=== PATIENT | male | born 1950 | race Caucasian/White ===

== ENCOUNTER → 2017-08-13 | Outpatient (CLI) | payer MEDICARE ==
[~2017-08-13] MED LIST: ASCO10004 PO; ASPI-496 PO; LOSA100T6 PO; MULT-658 PO; NIFE90TA8 PO; POTA2TAB8 PO; VITA400C43 PO
[2017-08-13 09:12] LABS: ASPARTATE AMINO TRANSFERASE 17 U/L (15-37); BLOOD UREA NITROGEN 17 mg/dL (7-18)
== END | disposition home or self-care (01) ==
LOC: STAR 08:03
PROVIDERS: ATTEND Thoracic Surgery (Cardiothoracic Vascular Surgery)
DX: Z01.818 Encounter for other preprocedural examination (principal); K43.9 Ventral hernia without obstruction or gangrene; R94.31 Abnormal electrocardiogram [ECG] [EKG]
CPT/HCPCS: 36415; 80053; 93005

== ENCOUNTER 2017-08-20 06:22 | Day surgery (SDC) | payer MEDICARE ==
[~2017-08-20] VITALS: Ht 177.8 cm; Wt 97.5 kg
[~2017-08-20 06:22] MED LIST changes: +BUPIVACAINE/PF 0.5% ONE
[2017-08-20 07:25] VITALS: BP 120/87
[2017-08-20] MEDS ORDERED: LACTATED RINGERS 1,000 ML IV SCH ×2 (07:41→10:10)
[2017-08-20] MEDS ORDERED: MIDAZOLAM 1 MG/ML, 2ML ONE (08:40)
[2017-08-20] MEDS ORDERED: FENTANYL PF 250 MCG/5ML ONE (08:41)
[2017-08-20] MEDS ORDERED: PROPOFOL 10 MG/ML, 20ML ONE (08:44)
[2017-08-20] MEDS ORDERED: ROCURONIUM 10 MG/ML,10ML ONE (08:44)
[2017-08-20] MEDS ORDERED: LABETALOL 5MG/ML, 20ML IV PRN (09:00)
[2017-08-20] MEDS ORDERED: FENTANYL PF 100 MCG/2ML IV PRN (09:00)
[2017-08-20] MEDS ORDERED: ACETAMINOPHEN 325 MG TABLET PO PRN (09:00)
[2017-08-20] MEDS ORDERED: OXYcodone 5 MG/5 ML ORAL.SOL UDC PO PRN (09:00)
[2017-08-20] MEDS ORDERED: ONDANSETRON 2MG/ML, 2ML IVPush PRN ×2 (09:00→10:30)
[2017-08-20] MEDS ORDERED: PROMETHAZINE 25 MG/ML, 1ML IV PRN (09:00)
[2017-08-20] MEDS ORDERED: MEPERIDINE/PF 25MG/0.5ML IVPush PRN (09:00)
[2017-08-20] MEDS ORDERED: HYDROmorphone 1 MG/ML, 1ML IV PRN (09:00)
[2017-08-20] MEDS ORDERED: hydrALAzine 20 MG/ML, 1ML IV PRN (09:00)
[2017-08-20] MEDS ORDERED: DEXAMETHASONE 4 MG/ML, 1ML ONE ×2 (09:27→10:52)
[2017-08-20] MEDS ORDERED: SUCCINYLCHOLINE 20 MG/ML, 10ML ONE (09:52)
[2017-08-20] MEDS ORDERED: BUPIVACAINE/PF-EPI 0.5% 1:200K IM ONE (09:58)
[2017-08-20] MEDS ORDERED: KETOROLAC 30 MG/1 ML ONE (09:59)
[2017-08-20] MEDS ORDERED: KETOROLAC 30 MG/1 ML IVPush PRN (10:30)
[2017-08-20] MEDS ORDERED: HYDROcodone/APAP 5/325 TABLET PO PRN (10:30)
[2017-08-20] MEDS ORDERED: morphine SULFATE 10 MG/ML, 1ML IVPush PRN (10:30)
[2017-08-20] MEDS ORDERED: OXYcodone 5 MG/5 ML ORAL.SOL UDC ONE (10:50)
[2017-08-20] MEDS ORDERED: ACETAMINOPHEN 325 MG TABLET ONE (10:50)
[2017-08-20] MEDS ORDERED: ACETAMINOPHEN 650 MG/20.3 ML UDC ONE (10:50)
[2017-08-20] MEDS ORDERED: ONDANSETRON 2MG/ML, 2ML ONE (16:09)
[2017-08-20] MEDS ORDERED: CEFAZOLIN 1,000 MG ONE (16:10)
== END 2017-08-20 12:10 ==
LOC: OUT 06:22
PROVIDERS: ATTEND Thoracic Surgery (Cardiothoracic Vascular Surgery)
DX: K43.9 Ventral hernia without obstruction or gangrene (principal); I10 Essential (primary) hypertension; I25.2 Old myocardial infarction; Z72.0 Tobacco use; Z72.89 Other problems related to lifestyle
CPT/HCPCS: 49570; C1781; J0330; J0690; J1100; J1885; J2250; J2405; J2704; J3010; J3490; J7120

== ENCOUNTER 2018-10-21 10:06 | Inpatient (IN) | payer MEDICARE ==
[~2018-10-21] VITALS: Ht 177.8 cm; Wt 100.3 kg
[~2018-10-21 10:06] MED LIST changes: -BUPIVACAINE/PF 0.5% ONE; +BUPIVACAINE/PF-EPI 0.5% 1:200K ONE; +HEPARIN 5,000 UNITS/ML, 1ML ONE; +LOSA100T14 PO; -LOSA100T6 PO
[2018-10-21] MEDS ORDERED: LACTATED RINGERS 1,000 ML IV SCH ×3 (10:46→12:38)
[2018-10-21 10:49] VITALS: BP 134/87
[2018-10-21] MEDS ORDERED: MIDAZOLAM 1 MG/ML, 2ML ONE (11:19)
[2018-10-21] MEDS ORDERED: FENTANYL PF 100 MCG/2ML ONE ×2 (11:19→12:17)
[2018-10-21] MEDS ORDERED: PROPOFOL 10 MG/ML, 20ML ONE (12:27)
[2018-10-21] MEDS ORDERED: CEFAZOLIN 1,000 MG ONE (12:27)
[2018-10-21] MEDS ORDERED: HYDROcodone/APAP 5/325 TABLET PO PRN (13:00)
[2018-10-21] MEDS ORDERED: ONDANSETRON 2MG/ML, 2ML IVPush PRN ×2 (13:00)
[2018-10-21] MEDS ORDERED: hydrALAzine 20 MG/ML, 1ML IV PRN ×2 (13:00)
[2018-10-21] MEDS ORDERED: LORazepam 2 MG/ML, 1ML IVPush PRN (13:00)
[2018-10-21] MEDS ORDERED: morphine SULFATE 10 MG/ML, 1ML IVPush PRN (13:00)
[2018-10-21] MEDS ORDERED: METOPROLOL 1 MG/ML, 5ML IV PRN (13:00)
[2018-10-21] MEDS ORDERED: LORazepam 2 MG/ML, 1ML IV PRN (13:00)
[2018-10-21] MEDS ORDERED: ACETAMINOPHEN 325 MG TABLET PO PRN (13:00)
[2018-10-21] MEDS: FAMOTIDINE 20 MG/2 ML IV SCH (13:00)
[2018-10-21] MEDS ORDERED: FENTANYL PF 100 MCG/2ML IV PRN (13:00)
[2018-10-21] MEDS ORDERED: ALBUTEROL/IPRATROPIUM 2.5MG/0.5MG, 3 ML NPPB PRN (13:00)
[2018-10-21] MEDS ORDERED: ACETAMINOPHEN 650 MG/20.3 ML UDC PO PRN (13:00)
[2018-10-21] MEDS ORDERED: ENALAPRILAT 1.25 MG/ML, 2ML IV PRN (13:00)
[2018-10-21] MEDS ORDERED: LORazepam 1MG TABLET PO PRN (13:00)
[2018-10-21] MEDS ORDERED: ONDANSETRON 2MG/ML, 2ML IV PRN (13:00)
[2018-10-21] MEDS ORDERED: MIDAZOLAM 1 MG/ML, 2ML IV PRN (13:00)
[2018-10-21] MEDS ORDERED: OXYcodone 5 MG/5 ML ORAL.SOL UDC PO PRN (13:00)
[2018-10-21] MEDS ORDERED: ACETAMINOPHEN 650 MG/20.3 ML UDC ONE (13:03)
[2018-10-21 14:00] VITALS: BP 117/76
[2018-10-21] MEDS ORDERED: AMLO10TA8 PO (14:19)
[2018-10-21] MEDS: FAMOTIDINE 20 MG TABLET PO SCH (14:32)
[2018-10-21 17:49] VITALS: BP 122/86
[2018-10-21] MEDS: METOPROLOL TARTRATE 25 MG TABLET PO SCH (17:54)
[2018-10-21 19:54] VITALS: BP 125/91
[2018-10-21] MEDS: APIXABAN 5 MG TABLET PO SCH (20:11)
[2018-10-22] MEDS: FAMOTIDINE 20 MG/2 ML IV SCH (00:01)
[2018-10-22 01:16] VITALS: BP_SYST 125
[2018-10-22] MEDS: FAMOTIDINE 20 MG TABLET PO SCH (02:09)
[2018-10-22 05:04] VITALS: BP 132/89
[2018-10-22] MEDS: METOPROLOL TARTRATE 25 MG TABLET PO SCH (05:06)
[2018-10-22 08:44] VITALS: BP 129/94
[2018-10-22] MEDS: APIXABAN 5 MG TABLET PO SCH (09:58)
[2018-10-22] MEDS ORDERED: METOPROLOL TARTRATE 25 MG TABLET PO ONE (10:00)
[2018-10-22] MEDS ORDERED: APIX5TAB PO (14:31)
[2018-10-22] MEDS ORDERED: METO50TA82 PO ×2 (14:31)
[2018-10-22] MEDS ORDERED: METOPROLOL TARTRATE 50 MG TABLET PO SCH (18:00)
== END 2018-10-22 15:10 | disposition home or self-care (01) | DRG 982 ==
LOC: OUT 10:06 → INTOOBSV 12:38 → ORIP 12:38 → OBSVTOIN 12:38 → 5SO 13:55 → DCLOUNGE 10-22 14:44
PROVIDERS: ADMIT Thoracic Surgery (Cardiothoracic Vascular Surgery); ATTEND Thoracic Surgery (Cardiothoracic Vascular Surgery)
PROC: B5181ZA Fluoroscopy of Superior Vena Cava using Low Osmolar Contrast, Guidance (ICD-10-PCS; 2018-10-21)
PROC: 0JH60WZ Insertion of Totally Implantable Vascular Access Device into Chest Subcutaneous Tissue and Fascia, Open Approach (ICD-10-PCS; 2018-10-21)
PROC: 02HV33Z Insertion of Infusion Device into Superior Vena Cava, Percutaneous Approach (ICD-10-PCS; principal; 2018-10-21 12:30)
DX: C34.90 Malignant neoplasm of unspecified part of unspecified bronchus or lung (principal); D68.69 Other thrombophilia; I48.91 Unspecified atrial fibrillation; F17.200 Nicotine dependence, unspecified, uncomplicated; I10 Essential (primary) hypertension; I25.2 Old myocardial infarction
CPT/HCPCS: 71045; 76000; 93005; 93306; G0378; J0690; J1644; J2250; J2704; J3010; C1788; J7120

== ENCOUNTER 2018-10-26 10:28 | Inpatient (IN) | payer MEDICARE ==
[~2018-10-26] VITALS: Ht 177.8 cm; Wt 96.3 kg
[~2018-10-26 10:28] MED LIST changes: +AMLO10TA8 PO; +APIX5TAB PO; -BUPIVACAINE/PF-EPI 0.5% 1:200K ONE; -HEPARIN 5,000 UNITS/ML, 1ML ONE; +METO50TA82 PO
--- NOTE | 2018-10-26 11:09 | NUR ---
Assumed care of patient. Admitted last Friday for left upper chest port placement for lung cancer. Pre-op EKG showed afib and patient was started on metoprolol and eliquis. Since starting new meds, patient reports bilat upper chest pressure and bilat shoulder pressure. Patient did not take meds this AM. C/O SOB and lightheadedness. Lungs coarse throughout. In afib. Patient states his HR was 37 at oncologist today, but HR = 120s in ED. 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 at bedside. Will continue to monitor.
[2018-10-26] MEDS ORDERED: DILTIAZEM 125 MG in DEXTROSE 5% 100 ML IV SCH (11:19)
[2018-10-26 11:21] LABS: BASOPHILS # (AUTO) 0.04 x10^3/uL (0-0.1); BASOPHILS % (AUTO) 1 % (0-1); EOSINOPHILS # (AUTO) 0.09 x10^3/uL (0-0.4); EOSINOPHILS % (AUTO) 1 % (1-7); LYMPHOCYTES # (AUTO) 1.72 x10^3/uL (1-3.4); LYMPHOCYTES % (AUTO) 21 % (22-44); MD NO; MEAN CORPUSCULAR HEMOGLOBIN 33.4 pg (27.5-34.5); MEAN CORPUSCULAR HGB CONC 33.3 g/dL (33.2-36.2); MEAN CORPUSCULAR VOLUME 100.2 fL (81-97); MEAN PLATELET VOLUME 9.9 fL (7.4-10.4); MONOCYTES # (AUTO) 0.84 x10^3/uL (0.2-0.8); MONOCYTES % (AUTO) 10 % (2-9); NEUTROPHILS # (AUTO) 5.38 x10^3/uL (1.8-6.8); NEUTROPHILS % (AUTO) 67 % (42-75); PLATELET COUNT 147 x10^3/uL (130-400); RED BLOOD COUNT 5.28 x10^6/uL (4.38-5.82); RED CELL DISTRIBUTION WIDTH 13.5 % (9.4-14.8)
[2018-10-26 11:30] LABS: INTERNATIONAL NORMALIZED RATIO 0.95 (0.93-1.1)
[2018-10-26 11:32] LABS: ALBUMIN 3.7 g/dL (3.4-5.0); ANION GAP 4 mmol/L (5-15); CALCIUM 9.1 mg/dL (8.5-10.1); CHLORIDE 110 mmol/L (98-107); CREATININE 1.05 mg/dL (0.7-1.3)
[2018-10-26 11:36] LABS: TROPONIN I < 0.015 ng/mL (0.000-0.045)
--- NOTE | 2018-10-26 11:46 | NUR ---
Remains in afib. Michelle fu.
--- NOTE | 2018-10-26 12:53 | NUR ---
Report to YAMILET John.
[2018-10-26] MEDS ORDERED: HYDROcodone/APAP 5/325 TABLET PO PRN (13:00)
[2018-10-26] MEDS ORDERED: morphine SULFATE 10 MG/ML, 1ML IVPush PRN (13:00)
--- NOTE | 2018-10-26 13:00 | NUR ---
Patient to CT.
[2018-10-26] MEDS ORDERED: OMNIPAQUE 350 MG/ML, 100ML BOTTLE ONE (13:42)
[2018-10-26 13:43] VITALS: BP 139/76
[2018-10-26 14:43] VITALS: BP 139/76
[2018-10-26] MEDS ORDERED: FUROSEMIDE 20 MG/2 ML IV ONE (16:30)
[2018-10-26] MEDS: METOPROLOL TARTRATE 25 MG TABLET PO SCH ×2 (16:49→22:53)
[2018-10-26 17:06] LABS: TROPONIN I < 0.015 ng/mL (0.000-0.045)
[2018-10-26] MEDS ORDERED: FAMOTIDINE 20 MG TABLET PO ONE (17:30)
[2018-10-26] MEDS ORDERED: LORazepam 0.5MG TABLET PO PRN (17:30)
[2018-10-26 18:52] VITALS: BP 132/85
[2018-10-26] MEDS: APIXABAN 5 MG TABLET PO SCH (21:08)
[2018-10-26] MEDS: ATORVASTATIN 40 MG TABLET PO SCH (21:11)
[2018-10-27 03:17] VITALS: BP 120/79
[2018-10-27] MEDS: METOPROLOL TARTRATE 25 MG TABLET PO SCH ×2 (04:04→08:17)
[2018-10-27 05:44] LABS: BASOPHILS # (AUTO) 0.03 x10^3/uL (0-0.1); BASOPHILS % (AUTO) 0 % (0-1); EOSINOPHILS # (AUTO) 0.17 x10^3/uL (0-0.4); EOSINOPHILS % (AUTO) 2 % (1-7); LYMPHOCYTES # (AUTO) 1.78 x10^3/uL (1-3.4); LYMPHOCYTES % (AUTO) 17 % (22-44); MD NO; MEAN CORPUSCULAR HEMOGLOBIN 34.2 pg (27.5-34.5); MEAN CORPUSCULAR HGB CONC 33.9 g/dL (33.2-36.2); MEAN CORPUSCULAR VOLUME 100.9 fL (81-97); MEAN PLATELET VOLUME 10.2 fL (7.4-10.4); MONOCYTES # (AUTO) 1.06 x10^3/uL (0.2-0.8); MONOCYTES % (AUTO) 10 % (2-9); NEUTROPHILS # (AUTO) 7.34 x10^3/uL (1.8-6.8); NEUTROPHILS % (AUTO) 71 % (42-75); PLATELET COUNT 143 x10^3/uL (130-400); RED BLOOD COUNT 4.99 x10^6/uL (4.38-5.82); RED CELL DISTRIBUTION WIDTH 13.4 % (9.4-14.8)
[2018-10-27 05:45] LABS: ANION GAP 3 mmol/L (5-15); CALCIUM 8.8 mg/dL (8.5-10.1); CHLORIDE 108 mmol/L (98-107)
[2018-10-27 05:50] LABS: CHOL/HDL RATIO 3.5; CHOLESTEROL, TOTAL 143 mg/dL (140-239); CREATININE 1.09 mg/dL (0.7-1.3); HDL CHOL % 29 % (26-37); HDL CHOLESTEROL (DIRECT) 41 mg/dL (40-60); LDL CHOLESTEROL,CALCULATED 88 mg/dL (54-169); LDL/HDL RATIO 2.1 (0.5-3.0); TRIGLYCERIDES 70 mg/dL (50-200); VLDL CHOLESTEROL 14 mg/dL (0-25)
[2018-10-27] MEDS ORDERED: ASPIRIN 81 MG TABLET EC PO SCH (06:00)
[2018-10-27 07:45] VITALS: BP 136/96
[2018-10-27] MEDS: APIXABAN 5 MG TABLET PO SCH ×2 (08:17→20:37)
[2018-10-27] MEDS ORDERED: REGADENOSON 0.4 MG/5 ML SYRINGE ONE (09:01)
[2018-10-27] MEDS: ACETAMINOPHEN 325 MG TABLET PO PRN ×2 (11:37→20:38)
[2018-10-27 13:30] VITALS: BP 129/89
[2018-10-27] MEDS ORDERED: OMNIPAQUE 350 MG/ML, 100ML BOTTLE ONE (17:47)
[2018-10-27] MEDS: ATORVASTATIN 40 MG TABLET PO SCH (20:37)
[2018-10-27] MEDS ORDERED: METOPROLOL SUCCINATE 50 MG TAB.ER.24H PO SCH (21:00)
[2018-10-27] MEDS ORDERED: LISINOPRIL 5 MG TABLET PO SCH (21:00)
[2018-10-27 21:23] VITALS: BP 113/76
[2018-10-28 00:54] VITALS: BP 107/73
[2018-10-28] MEDS ORDERED: FUROSEMIDE 20 MG/2 ML IV ONE (08:00)
[2018-10-28 08:06] VITALS: BP 118/86
[2018-10-28] MEDS: APIXABAN 5 MG TABLET PO SCH (08:42)
[2018-10-28] MEDS ORDERED: LISINOPRIL 5 MG TABLET PO SCH (09:00)
[2018-10-28] MEDS ORDERED: METOPROLOL SUCCINATE 25 MG TAB.ER.24H PO SCH (09:00)
[2018-10-28] MEDS ORDERED: METO25TA91 PO (14:28)
[2018-10-28] MEDS ORDERED: LISI5TAB7 PO (14:28)
== END 2018-10-28 17:40 | disposition home or self-care (01) | DRG 308 ==
LOC: ED 11:33 → EDIP 11:34 → ED 12:20 → 5SO 13:29 → DCLOUNGE 10-28 16:57
PROVIDERS: ADMIT Hospitalist; ATTEND Hospitalist
PROC: 5A2204Z Restoration of Cardiac Rhythm, Single (ICD-10-PCS; principal; 2018-10-27 15:00)
DX: I48.91 Unspecified atrial fibrillation (principal); I50.23 Acute on chronic systolic (congestive) heart failure; E43 Unspecified severe protein-calorie malnutrition; C34.90 Malignant neoplasm of unspecified part of unspecified bronchus or lung; D68.69 Other thrombophilia; C78.7 Secondary malignant neoplasm of liver and intrahepatic bile duct; J98.11 Atelectasis; E87.70 Fluid overload, unspecified; I42.9 Cardiomyopathy, unspecified; J44.9 Chronic obstructive pulmonary disease, unspecified; I10 Essential (primary) hypertension; R00.1 Bradycardia, unspecified; R06.89 Other abnormalities of breathing; Z87.891 Personal history of nicotine dependence; I25.10 Atherosclerotic heart disease of native coronary artery without angina pectoris; I25.2 Old myocardial infarction; R09.02 Hypoxemia; Z79.01 Long term (current) use of anticoagulants; Z80.3 Family history of malignant neoplasm of breast; Z85.118 Personal history of other malignant neoplasm of bronchus and lung; Z80.0 Family history of malignant neoplasm of digestive organs
CPT/HCPCS: 36415; 71045; 71275; 74177; 78452; 80048; 80061; 82040; 83880; 84443; 84484; 85025; 85610; 85730; 92960; 93005; 93017; 93312; 93321; 93325; 96365; G0378; J2785; Q9967; A9502; C9898; J1940

== ENCOUNTER → 2018-12-09 | Outpatient (CLI) | payer MEDICARE ==
[~2018-12-09] MED LIST changes: +LISI5TAB7 PO; +METO25TA91 PO; +OMNIPAQUE 350 MG/ML, 100ML BOTTLE ONE
== END | disposition home or self-care (01) ==
LOC: RAD 11:53
PROVIDERS: ATTEND Specialist
DX: C34.11 Malignant neoplasm of upper lobe, right bronchus or lung (principal); C78.7 Secondary malignant neoplasm of liver and intrahepatic bile duct; J43.2 Centrilobular emphysema; K76.89 Other specified diseases of liver; N28.1 Cyst of kidney, acquired
CPT/HCPCS: 71260; 74177; J1642; Q9967

== ENCOUNTER → 2018-12-14 | Outpatient (CLI) | payer MEDICARE ==
[~2018-12-14] MED LIST changes: +LISI-167 PO; -OMNIPAQUE 350 MG/ML, 100ML BOTTLE ONE
== END | disposition home or self-care (01) ==
LOC: CFH 09:30
DX: I35.8 Other nonrheumatic aortic valve disorders (principal); I11.9 Hypertensive heart disease without heart failure; I48.2 Chronic atrial fibrillation; I25.2 Old myocardial infarction; Z85.118 Personal history of other malignant neoplasm of bronchus and lung; Z87.891 Personal history of nicotine dependence
CPT/HCPCS: 93306

== ENCOUNTER 2018-12-15 11:27 | Emergency (ER) | payer MEDICARE ==
[~2018-12-15] VITALS: Ht 177.8 cm; Wt 100.9 kg
[~2018-12-15 11:27] MED LIST changes: -LISI-167 PO
--- NOTE | 2018-12-15 11:30 | NUR ---
NIL X 1
[2018-12-15] MEDS ORDERED: LISI-167 PO (11:48)
--- NOTE | 2018-12-15 11:51 | NUR ---
pt referred to ed from oncology office for htn. pt states bp in office was 160/100. pt reports rosenthal. no other s/s. connected to monitors. htn 168/107, all other vss on ra. edmd present for assessment. pt went in for 3rd cycle of chemo. pt reports changed lisinopril from 10mg BID to 20mg BID yesterday. pt compliant with all medications. med rec updated.
[2018-12-15] MEDS ORDERED: ENALAPRILAT 1.25 MG/ML, 2ML ONE (12:20)
[2018-12-15] MEDS ORDERED: ENALAPRILAT 1.25 MG/ML, 2ML IV ONE (12:30)
[2018-12-15 12:38] VITALS: BP 168/101
--- NOTE | 2018-12-15 12:47 | NUR ---
established port accessed. labs drawn. medicated per oct. pt resting in room. htn, all other vss on ra. no needs expressed. awaiting resutls.
[2018-12-15 12:54] LABS: BASOPHILS # (AUTO) 0.02 x10^3/uL (0-0.1); BASOPHILS % (AUTO) 0 % (0-1); EOSINOPHILS # (AUTO) 0.08 x10^3/uL (0-0.4); EOSINOPHILS % (AUTO) 1 % (1-7); LYMPHOCYTES # (AUTO) 1.66 x10^3/uL (1-3.4); LYMPHOCYTES % (AUTO) 16 % (22-44); MD NO; MEAN CORPUSCULAR HEMOGLOBIN 32.9 pg (27.5-34.5); MEAN CORPUSCULAR HGB CONC 32.6 g/dL (33.2-36.2); MEAN CORPUSCULAR VOLUME 100.7 fL (81-97); MEAN PLATELET VOLUME 9.4 fL (7.4-10.4); MONOCYTES # (AUTO) 0.98 x10^3/uL (0.2-0.8); MONOCYTES % (AUTO) 9 % (2-9); NEUTROPHILS # (AUTO) 7.98 x10^3/uL (1.8-6.8); NEUTROPHILS % (AUTO) 74 % (42-75); PLATELET COUNT 158 x10^3/uL (130-400); RED BLOOD COUNT 4.63 x10^6/uL (4.38-5.82); RED CELL DISTRIBUTION WIDTH 16.2 % (9.4-14.8)
[2018-12-15 13:05] LABS: ALBUMIN 3.8 g/dL (3.4-5.0); ANION GAP 7 mmol/L (5-15); CALCIUM 9.4 mg/dL (8.5-10.1); CHLORIDE 107 mmol/L (98-107); CREATININE 0.87 mg/dL (0.7-1.3)
--- NOTE | 2018-12-15 13:40 | NUR ---
edmd to bs to update on poc. plan to dc home.
== END 2018-12-15 14:43 | disposition home or self-care (01) ==
LOC: ED 12:38
DX: I10 Essential (primary) hypertension (principal); R51 Headache; I25.2 Old myocardial infarction; I48.91 Unspecified atrial fibrillation; Z85.118 Personal history of other malignant neoplasm of bronchus and lung
CPT/HCPCS: 36415; 80048; 82040; 85025; 96374; 99283; J1642

== ENCOUNTER 2019-02-17 11:07 | Inpatient (IN) | payer MEDICARE ==
[~2019-02-17] VITALS: Ht 177.8 cm; Wt 107.0 kg
[~2019-02-17 11:07] MED LIST changes: +LISI-167 PO
--- NOTE | 2019-02-17 11:59 | NUR ---
PT TO ROOM FROM LOBBY IN WHEELCHAIR
--- NOTE | 2019-02-17 12:29 | NUR ---
IV ESTABLISHED AND BLOOD SENT TO LAB. PT RESTING IN [facility] WITH AT BEDSIDE. PT ON MONITOR, CALL LIGHT WTIHIN REACH
[2019-02-17 12:37] LABS: MEAN CORPUSCULAR HEMOGLOBIN 34.5 pg (27.5-34.5); MEAN CORPUSCULAR HGB CONC 33.1 g/dL (33.2-36.2); MEAN CORPUSCULAR VOLUME 104.3 fL (81-97); MEAN PLATELET VOLUME 9.2 fL (7.4-10.4); PLATELET COUNT 195 x10^3/uL (130-400); RED BLOOD COUNT 4.12 x10^6/uL (4.38-5.82); RED CELL DISTRIBUTION WIDTH 18.5 % (9.4-14.8)
[2019-02-17] MEDS ORDERED: DILTIAZEM 125 MG in SODIUM CHLORIDE 0.9% 100 ML IV SCH ×2 (12:41→14:30)
[2019-02-17] MEDS ORDERED: DILTIAZEM 5 MG/ML, 10ML ONE (12:46)
[2019-02-17 12:50] LABS: ALBUMIN 2.3 g/dL (3.4-5.0); ANION GAP 10 mmol/L (5-15); CHLORIDE 99 mmol/L (98-107)
--- NOTE | 2019-02-17 12:51 | NUR ---
PT CONVERTED INTO AFIB W/RVR WITH MD AT BEDSIDE. CARDIZEM ORDERED AND PT MEDICATED PER MAR
--- NOTE | 2019-02-17 12:56 | NUR ---
CARDIZEM GTT ORDERED FROM PHARMACY
[2019-02-17 12:58] LABS: ALANINE AMINOTRANSFERASE 19 U/L (12-78); ALKALINE PHOSPHATASE 62 U/L (45-117); BILIRUBIN,TOTAL 1.4 mg/dL (0.2-1.0); CREATININE 1.54 mg/dL (0.7-1.3); TOTAL PROTEIN 6.6 g/dL (6.4-8.2); TROPONIN I < 0.015 ng/mL (0.000-0.045)
[2019-02-17] MEDS ORDERED: DILTIAZEM 5 MG/ML, 5ML IV ONE (13:00)
[2019-02-17 13:14] LABS: INTERNATIONAL NORMALIZED RATIO 1.09 (0.93-1.1); PROTHROMBIN TIME 11.4 Seconds (9.6-11.5)
[2019-02-17 13:49] LABS: BASOPHILS % (AUTO) 0 % (0-1); EOSINOPHILS % (AUTO) 0 % (1-7); LYMPHOCYTES # (AUTO) 0.77 x10^3/uL (1-3.4); LYMPHOCYTES % (AUTO) 2 % (22-44); MD SCAN; MONOCYTES % (AUTO) 2 % (2-9); NEUTROPHILS # (AUTO) 31.51 x10^3/uL (1.8-6.8); NEUTROPHILS % (AUTO) 96 % (42-75)
--- NOTE | 2019-02-17 14:00 | NUR ---
RECEIVED REPORT FROM ALINE MACIAS TO CTA, AT .
[2019-02-17] MEDS ORDERED: LORA-445 PO (14:07)
[2019-02-17] MEDS ORDERED: PRED20TA PO (14:07)
[2019-02-17] MEDS ORDERED: POTA2TAB8 PO (14:07)
[2019-02-17] MEDS ORDERED: CLON0.1T22 PO (14:07)
[2019-02-17] MEDS ORDERED: AMLO-150 PO (14:07)
[2019-02-17] MEDS ORDERED: HYDR-3237 PO (14:07)
[2019-02-17] MEDS ORDERED: TECENTRIQ (14:07)
--- NOTE | 2019-02-17 14:07 | NUR ---
PT RETURNED FROM CTA, UPRIGHT ON GURNEY AWAKE & COMFORTABLE, RESPONDS APPROP TO STAFF, NAD, COMFORT MEASURES PROVIDED, AT BS, CALL LIGHT WITHIN REACH.
[2019-02-17] MEDS ORDERED: VANCOMYCIN PER PHARMACY MC ONE (14:38)
[2019-02-17] MEDS ORDERED: PHARMACOKINETIC CONSULTATION MC ONE (15:00)
[2019-02-17] MEDS ORDERED: PIPERACILLIN/TAZO/PMX 3.375GM 50 ML IV ONE (15:00)
[2019-02-17] MEDS ORDERED: VANCOMYCIN 2,000 MG in SODIUM CHLORIDE 0.9% 500 ML IV ONE (15:00)
--- NOTE | 2019-02-17 15:11 | NUR ---
Pt to be admitted to [facility], room 511-2. Report called to Siobhan.
[2019-02-17] MEDS ORDERED: SODIUM CHLORIDE 0.9%, 500ML IVBOLUS ONE (15:30)
[2019-02-17] MEDS ORDERED: morphine SULFATE 10 MG/ML, 1ML IVPush PRN (15:30)
[2019-02-17] MEDS ORDERED: hydrALAzine 20 MG/ML, 1ML IVPush PRN (15:30)
[2019-02-17] MEDS ORDERED: LORazepam 0.5MG TABLET PO PRN (15:30)
[2019-02-17] MEDS ORDERED: VANCOMYCIN PER PHARMACY MC PRN (15:30)
[2019-02-17] MEDS ORDERED: GUAIFENESIN/DM 200-20MG, 10ML UDC PO PRN (15:30)
[2019-02-17] MEDS ORDERED: DILTIAZEM 5 MG/ML, 5ML IVPush ONE (15:30)
[2019-02-17] MEDS ORDERED: ACETAMINOPHEN 325 MG TABLET PO PRN (15:30)
[2019-02-17] MEDS ORDERED: ONDANSETRON 2MG/ML, 2ML IVPush PRN (15:30)
[2019-02-17 15:57] VITALS: BP 138/84
[2019-02-17] MEDS ORDERED: DEXTROSE 50%, 50ML SYRINGE IVPush PRN (16:00)
[2019-02-17] MEDS ORDERED: DEXTROSE 4 GM TAB.CHEW PO PRN (16:00)
[2019-02-17] MEDS ORDERED: GLUCAGON 1 MG IM PRN (16:00)
[2019-02-17] MEDS ORDERED: PHARMACOKINETIC MONITORING MC PRN (17:00)
[2019-02-17] MEDS: INSULIN LISPRO 100 UNITS/ML, PEN SQ-INSULIN SCH ×2 (17:32→21:21)
[2019-02-17] MEDS: PIPERACILLIN/TAZO/PMX 3.375GM 50 ML IV SCH (17:43)
[2019-02-17] MEDS: HYDROcodone/APAP 5/325 TABLET PO PRN ×2 (17:54→22:14)
[2019-02-17] MEDS ORDERED: ALBUTEROL/IPRATROPIUM 2.5MG/0.5MG, 3 ML HHN PRN (18:30)
[2019-02-17] MEDS ORDERED: METOPROLOL SUCCINATE 25 MG TAB.ER.24H ONE (18:35)
[2019-02-17] MEDS: BUDESONIDE 0.5 MG/2 ML INHA INH SCH (19:40)
[2019-02-17 20:39] VITALS: BP 141/91
[2019-02-17] MEDS ORDERED: METOPROLOL SUCCINATE 25 MG TAB.ER.24H PO SCH (21:00)
[2019-02-17] MEDS: APIXABAN 5 MG TABLET PO SCH (21:21)
[2019-02-17] MEDS: SODIUM CHLORIDE FLUSH 10ML SYR IVF SCH (21:22)
[2019-02-18 00:06] VITALS: BP 127/89
[2019-02-18] MEDS ORDERED: DILTIAZEM 5 MG/ML, 5ML IVPush ONE ×2 (00:30→02:00)
[2019-02-18 00:58] VITALS: BP 139/95
[2019-02-18] MEDS: PIPERACILLIN/TAZO/PMX 3.375GM 50 ML IV SCH (02:09)
[2019-02-18 02:21] VITALS: BP 150/83
[2019-02-18] MEDS ORDERED: DILTIAZEM 30 MG TABLET PO SCH (03:00)
[2019-02-18 05:41] LABS: ANION GAP 6 mmol/L (5-15); CALCIUM 8.8 mg/dL (8.5-10.1); CHLORIDE 100 mmol/L (98-107)
[2019-02-18] MEDS: HYDROcodone/APAP 5/325 TABLET PO PRN ×3 (05:42→21:13)
[2019-02-18 05:43] LABS: MEAN CORPUSCULAR HEMOGLOBIN 34.3 pg (27.5-34.5); MEAN CORPUSCULAR HGB CONC 32.3 g/dL (33.2-36.2); MEAN CORPUSCULAR VOLUME 106.2 fL (81-97); MEAN PLATELET VOLUME 9.3 fL (7.4-10.4); PLATELET COUNT 168 x10^3/uL (130-400); RED BLOOD COUNT 3.66 x10^6/uL (4.38-5.82)
[2019-02-18 06:10] LABS: ALANINE AMINOTRANSFERASE 15 U/L (12-78); ALKALINE PHOSPHATASE 63 U/L (45-117); BILIRUBIN,TOTAL 0.7 mg/dL (0.2-1.0)
[2019-02-18 06:35] LABS: MD YES
[2019-02-18 06:36] LABS: BAND#(MANUAL) 0.86 x10^3/uL; BANDS%(MANUAL) 3 % (0-7); LYMPH#(MANUAL) 1.44 x10^3/uL (1-3.4); LYMPHS% (MANUAL) 5 % (22-44); MONOS#(MANUAL) 1.15 x10^3/uL (0.3-2.7); MONOS% (MANUAL) 4 % (2-9); SEG#(MANUAL) 25.34 x10^3/uL (1.8-6.8); SEGS% (MANUAL) 88 % (42-75)
[2019-02-18 06:37] LABS: ANISOCYTOSIS 1+
[2019-02-18 06:38] LABS: <PLATELET ESTIMATE> ADEQUATE; <PLT MORPHOLOGY> NORMAL PLT MORPH
[2019-02-18] MEDS ORDERED: DILTIAZEM 125 MG in SODIUM CHLORIDE 0.9% 100 ML IV SCH (07:30)
[2019-02-18] MEDS: INSULIN LISPRO 100 UNITS/ML, PEN SQ-INSULIN SCH ×4 (08:10→21:06)
[2019-02-18 08:11] LABS: HCT (SEDRATE) 38.8 % (39.2-51.8)
[2019-02-18 08:15] LABS: C-REACTIVE PROTEIN, QUANT > 19.00 mg/dL (0.02-0.49)
[2019-02-18] MEDS: APIXABAN 5 MG TABLET PO SCH ×2 (08:50→21:05)
[2019-02-18] MEDS: METOPROLOL SUCCINATE 25 MG TAB.ER.24H PO SCH (08:51)
[2019-02-18] MEDS: SODIUM CHLORIDE FLUSH 10ML SYR IVF SCH ×2 (08:54→21:00)
[2019-02-18] MEDS: CEFEPIME 2 GM in DEXTROSE 5% 100 ML IV SCH ×2 (08:55→17:07)
[2019-02-18] MEDS ORDERED: PREDNISONE 10 MG TAB PO SCH (09:00)
[2019-02-18 09:45] VITALS: BP 148/91
[2019-02-18] MEDS: METRONIDAZOLE PMX 500MG/100ML 100 ML IV SCH ×2 (10:25→17:46)
[2019-02-18] MEDS: BUDESONIDE 0.5 MG/2 ML INHA INH SCH ×2 (11:00→20:13)
[2019-02-18] MEDS: AMIODARONE 200 MG TABLET PO SCH ×2 (14:04→21:05)
[2019-02-18 14:28] VITALS: BP 122/83
[2019-02-18] MEDS: methylPREDNISolone SOD SUCC 125 MG/2 ML IVPush SCH ×2 (17:07→23:37)
[2019-02-18] MEDS: DILTIAZEM 125 MG in SODIUM CHLORIDE 0.9% 100 ML IV SCH (17:33)
[2019-02-18] MEDS: VANCOMYCIN 1,800 MG in SODIUM CHLORIDE 0.9% 250 ML IV SCH (18:44)
[2019-02-18 19:28] VITALS: BP 137/95
[2019-02-18] MEDS ORDERED: AMIODARONE 200 MG TABLET PO SCH (21:00)
[2019-02-19 00:54] VITALS: BP 118/79
[2019-02-19] MEDS: CEFEPIME 2 GM in DEXTROSE 5% 100 ML IV SCH ×3 (01:17→17:07)
[2019-02-19] MEDS: METRONIDAZOLE PMX 500MG/100ML 100 ML IV SCH ×3 (02:28→21:38)
[2019-02-19] MEDS: DILTIAZEM 125 MG in SODIUM CHLORIDE 0.9% 100 ML IV SCH ×3 (02:29→23:11)
[2019-02-19] MEDS: methylPREDNISolone SOD SUCC 125 MG/2 ML IVPush SCH ×4 (05:36→23:10)
[2019-02-19 05:40] LABS: MEAN CORPUSCULAR HEMOGLOBIN 34.3 pg (27.5-34.5); MEAN CORPUSCULAR HGB CONC 32.3 g/dL (33.2-36.2); MEAN CORPUSCULAR VOLUME 106.1 fL (81-97); MEAN PLATELET VOLUME 9.6 fL (7.4-10.4); PLATELET COUNT 154 x10^3/uL (130-400); RED BLOOD COUNT 3.61 x10^6/uL (4.38-5.82); RED CELL DISTRIBUTION WIDTH 18.1 % (9.4-14.8)
[2019-02-19] MEDS: METOPROLOL SUCCINATE 25 MG TAB.ER.24H PO SCH (05:41)
[2019-02-19] MEDS: HYDROcodone/APAP 5/325 TABLET PO PRN ×5 (05:46→21:48)
[2019-02-19 05:57] LABS: CHLORIDE 102 mmol/L (98-107)
[2019-02-19 06:05] LABS: ANION GAP 8 mmol/L (5-15); CALCIUM 9.2 mg/dL (8.5-10.1); CREATININE 1.14 mg/dL (0.7-1.3); FREE T4 (FREE THYROXINE) 1.11 ng/dL (0.76-1.46)
[2019-02-19 06:28] LABS: BASOPHILS # (AUTO) 0.01 x10^3/uL (0-0.1); BASOPHILS % (AUTO) 0 % (0-1); EOSINOPHILS # (AUTO) 0.02 x10^3/uL (0-0.4); EOSINOPHILS % (AUTO) 0 % (1-7); LYMPHOCYTES # (AUTO) 0.62 x10^3/uL (1-3.4); LYMPHOCYTES % (AUTO) 2 % (22-44); MD SCAN; MONOCYTES # (AUTO) 0.39 x10^3/uL (0.2-0.8); MONOCYTES % (AUTO) 1 % (2-9); NEUTROPHILS # (AUTO) 26.75 x10^3/uL (1.8-6.8); NEUTROPHILS % (AUTO) 96 % (42-75)
[2019-02-19 08:04] VITALS: BP 138/77
[2019-02-19] MEDS: INSULIN LISPRO 100 UNITS/ML, PEN SQ-INSULIN SCH ×4 (08:36→21:40)
[2019-02-19] MEDS: SODIUM CHLORIDE FLUSH 10ML SYR IVF SCH ×2 (08:37→21:35)
[2019-02-19] MEDS: AMIODARONE 200 MG TABLET PO SCH ×2 (08:37→21:35)
[2019-02-19] MEDS: APIXABAN 5 MG TABLET PO SCH ×2 (08:37→21:35)
[2019-02-19] MEDS ORDERED: PREDNISONE 10 MG TAB PO SCH (09:00)
[2019-02-19] MEDS: BUDESONIDE 0.5 MG/2 ML INHA INH SCH ×2 (09:40→20:34)
[2019-02-19 14:52] VITALS: BP 136/84
[2019-02-19] MEDS: FAMOTIDINE 20 MG TABLET PO SCH (18:13)
[2019-02-19] MEDS: VANCOMYCIN 1,800 MG in SODIUM CHLORIDE 0.9% 250 ML IV SCH (18:16)
[2019-02-19 19:12] VITALS: BP 130/90
[2019-02-20] MEDS: CEFEPIME 2 GM in DEXTROSE 5% 100 ML IV SCH ×3 (01:04→18:11)
[2019-02-20 01:16] VITALS: BP 149/91
[2019-02-20] MEDS: METRONIDAZOLE PMX 500MG/100ML 100 ML IV SCH ×3 (05:36→21:22)
[2019-02-20] MEDS: methylPREDNISolone SOD SUCC 125 MG/2 ML IVPush SCH ×4 (05:36→23:16)
[2019-02-20] MEDS: METOPROLOL SUCCINATE 25 MG TAB.ER.24H PO SCH (05:36)
[2019-02-20 06:30] LABS: MEAN CORPUSCULAR HEMOGLOBIN 34.4 pg (27.5-34.5); MEAN CORPUSCULAR HGB CONC 32.6 g/dL (33.2-36.2); MEAN CORPUSCULAR VOLUME 105.4 fL (81-97); MEAN PLATELET VOLUME 9.5 fL (7.4-10.4); PLATELET COUNT 169 x10^3/uL (130-400); RED BLOOD COUNT 3.76 x10^6/uL (4.38-5.82); RED CELL DISTRIBUTION WIDTH 18.3 % (9.4-14.8)
[2019-02-20 06:37] LABS: ANION GAP 6 mmol/L (5-15); CALCIUM 9.1 mg/dL (8.5-10.1); CHLORIDE 101 mmol/L (98-107)
[2019-02-20 06:51] LABS: BASOPHILS % (AUTO) 0 % (0-1); EOSINOPHILS % (AUTO) 0 % (1-7); LYMPHOCYTES # (AUTO) 0.72 x10^3/uL (1-3.4); LYMPHOCYTES % (AUTO) 3 % (22-44); MD SCAN; MONOCYTES # (AUTO) 0.14 x10^3/uL (0.2-0.8); MONOCYTES % (AUTO) 1 % (2-9); NEUTROPHILS # (AUTO) 25.05 x10^3/uL (1.8-6.8); NEUTROPHILS % (AUTO) 97 % (42-75)
[2019-02-20] MEDS: BUDESONIDE 0.5 MG/2 ML INHA INH SCH ×2 (06:56→20:46)
[2019-02-20] MEDS: DILTIAZEM 125 MG in SODIUM CHLORIDE 0.9% 100 ML IV SCH (07:42)
[2019-02-20 07:46] VITALS: BP 138/86
[2019-02-20] MEDS: APIXABAN 5 MG TABLET PO SCH ×2 (08:33→21:22)
[2019-02-20] MEDS: HYDROcodone/APAP 5/325 TABLET PO PRN ×3 (08:33→18:11)
[2019-02-20] MEDS: AMIODARONE 200 MG TABLET PO SCH ×2 (08:33→21:22)
[2019-02-20] MEDS: FAMOTIDINE 20 MG TABLET PO SCH (08:34)
[2019-02-20] MEDS: INSULIN LISPRO 100 UNITS/ML, PEN SQ-INSULIN SCH ×4 (08:34→21:32)
[2019-02-20] MEDS: SODIUM CHLORIDE FLUSH 10ML SYR IVF SCH ×2 (08:35→21:22)
[2019-02-20] MEDS: DILTIAZEM 240 MG CAP.ER.24H PO SCH (10:11)
[2019-02-20] MEDS ORDERED: VANCOMYCIN 1,800 MG in SODIUM CHLORIDE 0.9% 250 ML IV SCH (12:00)
[2019-02-20 14:07] VITALS: BP 134/82
[2019-02-20 18:58] VITALS: BP 153/93
[2019-02-21] MEDS: HYDROcodone/APAP 5/325 TABLET PO PRN ×4 (00:13→21:13)
[2019-02-21 00:20] VITALS: BP 150/88
[2019-02-21] MEDS: CEFEPIME 2 GM in DEXTROSE 5% 100 ML IV SCH ×3 (02:41→17:16)
[2019-02-21] MEDS: methylPREDNISolone SOD SUCC 125 MG/2 ML IVPush SCH (05:41)
[2019-02-21] MEDS: METRONIDAZOLE PMX 500MG/100ML 100 ML IV SCH ×3 (05:41→21:10)
[2019-02-21] MEDS: METOPROLOL SUCCINATE 25 MG TAB.ER.24H PO SCH ×2 (05:41→21:11)
[2019-02-21 06:17] LABS: MEAN CORPUSCULAR HGB CONC 32.5 g/dL (33.2-36.2); MEAN CORPUSCULAR VOLUME 104.6 fL (81-97); MEAN PLATELET VOLUME 9.4 fL (7.4-10.4); PLATELET COUNT 161 x10^3/uL (130-400); RED BLOOD COUNT 3.77 x10^6/uL (4.38-5.82); RED CELL DISTRIBUTION WIDTH 18.5 % (9.4-14.8)
[2019-02-21 06:24] LABS: ANION GAP 5 mmol/L (5-15); CALCIUM 8.9 mg/dL (8.5-10.1); CHLORIDE 101 mmol/L (98-107); CREATININE 1.13 mg/dL (0.7-1.3)
[2019-02-21 07:06] LABS: BASOPHILS # (AUTO) 0.12 x10^3/uL (0-0.1); BASOPHILS % (AUTO) 1 % (0-1); EOSINOPHILS % (AUTO) 0 % (1-7); LYMPHOCYTES # (AUTO) 0.66 x10^3/uL (1-3.4); LYMPHOCYTES % (AUTO) 3 % (22-44); MD SCAN; MONOCYTES # (AUTO) 0.26 x10^3/uL (0.2-0.8); MONOCYTES % (AUTO) 1 % (2-9); NEUTROPHILS # (AUTO) 21.37 x10^3/uL (1.8-6.8); NEUTROPHILS % (AUTO) 95 % (42-75)
[2019-02-21] MEDS: BUDESONIDE 0.5 MG/2 ML INHA INH SCH ×2 (07:46→20:55)
[2019-02-21 07:47] VITALS: BP 158/98
[2019-02-21 07:57] LABS: HCT (SEDRATE) 39.5 % (39.2-51.8)
[2019-02-21] MEDS: INSULIN LISPRO 100 UNITS/ML, PEN SQ-INSULIN SCH ×4 (09:28→21:13)
[2019-02-21] MEDS: FAMOTIDINE 20 MG TABLET PO SCH (09:28)
[2019-02-21] MEDS: APIXABAN 5 MG TABLET PO SCH ×2 (09:29→21:11)
[2019-02-21] MEDS: AMIODARONE 200 MG TABLET PO SCH ×2 (09:29→21:11)
[2019-02-21] MEDS: methylPREDNISolone SOD SUCC 40 MG/ML IVPush SCH ×2 (09:29→21:10)
[2019-02-21] MEDS: SODIUM CHLORIDE FLUSH 10ML SYR IVF SCH ×2 (09:30→20:51)
[2019-02-21] MEDS: DILTIAZEM 240 MG CAP.ER.24H PO SCH (09:31)
[2019-02-21 13:27] VITALS: BP 157/96
[2019-02-21 21:08] VITALS: BP 148/96
[2019-02-22 03:00] VITALS: BP 162/93
[2019-02-22] MEDS: CEFEPIME 2 GM in DEXTROSE 5% 100 ML IV SCH ×3 (03:00→18:26)
[2019-02-22] MEDS: FAMOTIDINE 20 MG TABLET PO SCH (05:40)
[2019-02-22] MEDS: METRONIDAZOLE PMX 500MG/100ML 100 ML IV SCH ×3 (05:40→21:53)
[2019-02-22] MEDS: HYDROcodone/APAP 5/325 TABLET PO PRN ×2 (06:03→13:58)
[2019-02-22 06:16] LABS: MEAN CORPUSCULAR HEMOGLOBIN 33.2 pg (27.5-34.5); MEAN CORPUSCULAR VOLUME 103.7 fL (81-97); MEAN PLATELET VOLUME 9.1 fL (7.4-10.4); PLATELET COUNT 147 x10^3/uL (130-400); RED BLOOD COUNT 3.75 x10^6/uL (4.38-5.82); RED CELL DISTRIBUTION WIDTH 17.9 % (9.4-14.8)
[2019-02-22 06:18] LABS: ANION GAP 4 mmol/L (5-15); CHLORIDE 100 mmol/L (98-107); CREATININE 1.03 mg/dL (0.7-1.3)
[2019-02-22 07:18] LABS: BASOPHILS # (AUTO) 0.32 x10^3/uL (0-0.1); BASOPHILS % (AUTO) 1 % (0-1); EOSINOPHILS % (AUTO) 0 % (1-7); LYMPHOCYTES # (AUTO) 0.53 x10^3/uL (1-3.4); LYMPHOCYTES % (AUTO) 2 % (22-44); MD SCAN; MONOCYTES # (AUTO) 0.36 x10^3/uL (0.2-0.8); MONOCYTES % (AUTO) 2 % (2-9); NEUTROPHILS # (AUTO) 23.58 x10^3/uL (1.8-6.8); NEUTROPHILS % (AUTO) 95 % (42-75)
[2019-02-22 07:31] VITALS: BP 161/102
[2019-02-22] MEDS ORDERED: MAALOX/HYOSCYAMINE/LIDOCAINE 45 ML BTL PO ONE (08:00)
[2019-02-22] MEDS: INSULIN LISPRO 100 UNITS/ML, PEN SQ-INSULIN SCH ×4 (08:13→21:57)
[2019-02-22] MEDS: DILTIAZEM 240 MG CAP.ER.24H PO SCH (08:14)
[2019-02-22] MEDS: AMIODARONE 200 MG TABLET PO SCH (08:14)
[2019-02-22] MEDS: SODIUM CHLORIDE FLUSH 10ML SYR IVF SCH ×2 (08:14→21:53)
[2019-02-22] MEDS: APIXABAN 5 MG TABLET PO SCH ×2 (08:14→21:53)
[2019-02-22] MEDS: METOPROLOL SUCCINATE 25 MG TAB.ER.24H PO SCH ×2 (09:00→21:52)
[2019-02-22] MEDS: BUDESONIDE 0.5 MG/2 ML INHA INH SCH ×2 (09:00→21:00)
[2019-02-22] MEDS ORDERED: PREDNISONE 10 MG TAB PO SCH (09:00)
[2019-02-22 10:32] VITALS: BP 158/95
[2019-02-22 14:02] VITALS: BP 159/65
[2019-02-22 21:45] VITALS: BP 146/92
[2019-02-23 01:39] VITALS: BP 144/90
[2019-02-23] MEDS: CEFEPIME 2 GM in DEXTROSE 5% 100 ML IV SCH ×2 (02:55→10:49)
[2019-02-23 05:23] LABS: MEAN CORPUSCULAR HEMOGLOBIN 33.6 pg (27.5-34.5); MEAN CORPUSCULAR HGB CONC 32.3 g/dL (33.2-36.2); MEAN PLATELET VOLUME 8.5 fL (7.4-10.4); PLATELET COUNT 141 x10^3/uL (130-400); RED BLOOD COUNT 3.94 x10^6/uL (4.38-5.82); RED CELL DISTRIBUTION WIDTH 18.2 % (9.4-14.8)
[2019-02-23 05:39] LABS: CHLORIDE 99 mmol/L (98-107)
[2019-02-23 05:46] LABS: ALANINE AMINOTRANSFERASE 23 U/L (12-78); ALBUMIN 2.2 g/dL (3.4-5.0); ALKALINE PHOSPHATASE 66 U/L (45-117); ANION GAP 5 mmol/L (5-15); BILIRUBIN,TOTAL 0.4 mg/dL (0.2-1.0); CALCIUM 9.1 mg/dL (8.5-10.1); CREATININE 0.87 mg/dL (0.7-1.3); TOTAL PROTEIN 6.1 g/dL (6.4-8.2)
[2019-02-23] MEDS: FAMOTIDINE 20 MG TABLET PO SCH (06:22)
[2019-02-23] MEDS: METRONIDAZOLE PMX 500MG/100ML 100 ML IV SCH (06:22)
[2019-02-23 06:34] LABS: MD YES
[2019-02-23 06:35] LABS: LYMPH#(MANUAL) 0.54 x10^3/uL (1-3.4); LYMPHS% (MANUAL) 2 % (22-44); MONOS#(MANUAL) 0.54 x10^3/uL (0.3-2.7); MONOS% (MANUAL) 2 % (2-9); SEG#(MANUAL) 25.73 x10^3/uL (1.8-6.8); SEGS% (MANUAL) 96 % (42-75)
[2019-02-23 06:36] LABS: <PLATELET ESTIMATE> ADEQUATE; <PLT MORPHOLOGY> NORMAL PLT MORPH; ANISOCYTOSIS 1+; PMNS WITH VACUOLES 1+
[2019-02-23] MEDS: INSULIN LISPRO 100 UNITS/ML, PEN SQ-INSULIN SCH ×2 (07:00→11:47)
[2019-02-23 07:52] VITALS: BP 137/91
[2019-02-23] MEDS: BUDESONIDE 0.5 MG/2 ML INHA INH SCH (08:38)
[2019-02-23] MEDS: METOPROLOL SUCCINATE 25 MG TAB.ER.24H PO SCH (08:46)
[2019-02-23] MEDS: SODIUM CHLORIDE FLUSH 10ML SYR IVF SCH (08:46)
[2019-02-23] MEDS: DILTIAZEM 240 MG CAP.ER.24H PO SCH (08:46)
[2019-02-23] MEDS: APIXABAN 5 MG TABLET PO SCH (08:46)
[2019-02-23] MEDS ORDERED: FAMO20TA7 PO (12:22)
[2019-02-23] MEDS ORDERED: DILT240C55 PO (12:22)
[2019-02-23] MEDS ORDERED: PRED10TA PO (12:22)
[2019-02-23] MEDS ORDERED: AMOX1TAB64 PO (12:24)
[2019-02-23 13:25] VITALS: BP 134/88
[2019-02-25] MEDS ORDERED: PREDNISONE 10 MG TAB PO SCH (09:00)
[2019-02-28] MEDS ORDERED: PREDNISONE 10 MG TAB PO SCH (09:00)
== END 2019-02-23 14:16 | disposition home health service (06) | DRG 871 ==
LOC: ED 14:23 → EDIP 14:40 → 5SO 15:51 → DCLOUNGE 02-23 14:00
PROVIDERS: ADMIT Hospitalist; ATTEND Hospitalist
DX: A41.9 Sepsis, unspecified organism (principal); N17.0 Acute kidney failure with tubular necrosis; J96.01 Acute respiratory failure with hypoxia; J18.1 Lobar pneumonia, unspecified organism; C34.90 Malignant neoplasm of unspecified part of unspecified bronchus or lung; C79.51 Secondary malignant neoplasm of bone; D68.69 Other thrombophilia; I31.3 Pericardial effusion (noninflammatory); I42.9 Cardiomyopathy, unspecified; I50.42 Chronic combined systolic (congestive) and diastolic (congestive) heart failure; J44.0 Chronic obstructive pulmonary disease with (acute) lower respiratory infection; R17 Unspecified jaundice; Z51.5 Encounter for palliative care; Z66 Do not resuscitate; R73.9 Hyperglycemia, unspecified; T38.0X5A Adverse effect of glucocorticoids and synthetic analogues, initial encounter; D53.9 Nutritional anemia, unspecified; D72.823 Leukemoid reaction; I11.0 Hypertensive heart disease with heart failure; I25.10 Atherosclerotic heart disease of native coronary artery without angina pectoris; I48.0 Paroxysmal atrial fibrillation; K21.9 Gastro-esophageal reflux disease without esophagitis; L98.9 Disorder of the skin and subcutaneous tissue, unspecified; Y92.89 Other specified places as the place of occurrence of the external cause; I25.2 Old myocardial infarction; Z79.01 Long term (current) use of anticoagulants; Z80.3 Family history of malignant neoplasm of breast; Z85.118 Personal history of other malignant neoplasm of bronchus and lung; Z87.891 Personal history of nicotine dependence; Z92.21 Personal history of antineoplastic chemotherapy
CPT/HCPCS: 36415; 36600; 70450; 71045; 71046; 71275; 74177; 80048; 80053; 82607; 82803; 82962; 83605; 83880; 84145; 84439; 84443; 84484; 85025; 85610; 85651; 86140; 87040; 87070; 87081; 87205; 93005; 94640; 96365; 96366; 96375; 99291; G0378; J2405; J2543; J3370; J7626; J1815; J2920; J2930; J7040; J7050; J7512

== ENCOUNTER 2019-03-09 10:56 | Outpatient (CLI) | payer MEDICARE | END 2019-03-09 23:59 | disposition home or self-care (01) | LOC: ROC 10:56 | PROVIDERS: ATTEND Radiology Radiation Oncology | DX: C34.90 Malignant neoplasm of unspecified part of unspecified bronchus or lung (principal) | CPT/HCPCS: 99214; G0463 ==

== ENCOUNTER 2019-03-19 11:54 | Outpatient (CLI) | payer MEDICARE ==
[~2019-03-19 11:54] MED LIST changes: +AMLO-150 PO; +AMOX1TAB64 PO; +CLON0.1T22 PO; +DILT240C55 PO; +FAMO20TA7 PO; +HYDR-3237 PO; +LORA-445 PO; +PRED10TA PO; +PRED20TA PO; +TECENTRIQ
[2019-03-19] MEDS ORDERED: OMNIPAQUE 350 MG/ML, 75ML BOTTLE ONE (14:22)
== END 2019-03-19 23:59 | disposition home or self-care (01) ==
LOC: CFH 11:54
PROVIDERS: ATTEND Specialist
DX: C34.11 Malignant neoplasm of upper lobe, right bronchus or lung (principal); J98.19 Other pulmonary collapse; R59.0 Localized enlarged lymph nodes
CPT/HCPCS: 71260; Q9967

== ENCOUNTER 2019-03-21 15:28 | Emergency (ER) | payer MEDICARE ==
[~2019-03-21] VITALS: Ht 177.8 cm; Wt 95.1 kg
--- NOTE | 2019-03-21 16:20 | NUR ---
PT A&OX4, RESP SLIGHTLY LABORED, SPEECH CLEAR, SKIN WNL. IMMUNE THERAPY 5 DAYS AGO. RADIATION WED, TH, FRI. C/O WEAKNESS, SWEATS, "FEEL LIKE I HAVE THE FLU", "BIG ASS TUMOR IN MY RIGHT LUNG". DENIES CP.
[2019-03-21] MEDS ORDERED: MULTIVITAMIN (16:33)
[2019-03-21] MEDS ORDERED: OMEP20TA62 PO (16:33)
[2019-03-21] MEDS ORDERED: HYDR-36 PO (16:33)
[2019-03-21] MEDS ORDERED: CLON0.1T22 PO (16:33)
[2019-03-21] MEDS ORDERED: VITAMIN E (16:33)
[2019-03-21] MEDS ORDERED: METO25TA35 PO (16:33)
[2019-03-21] MEDS ORDERED: AMIO100T4 PO (16:33)
[2019-03-21 16:55] LABS: BASOPHILS % (AUTO) 0 % (0-1); EOSINOPHILS # (AUTO) 0.05 x10^3/uL (0-0.4); EOSINOPHILS % (AUTO) 1 % (1-7); LYMPHOCYTES # (AUTO) 0.74 x10^3/uL (1-3.4); LYMPHOCYTES % (AUTO) 11 % (22-44); MD NO; MEAN CORPUSCULAR HEMOGLOBIN 31.3 pg (27.5-34.5); MEAN CORPUSCULAR HGB CONC 31.6 g/dL (33.2-36.2); MEAN PLATELET VOLUME 7.7 fL (7.4-10.4); MONOCYTES # (AUTO) 0.72 x10^3/uL (0.2-0.8); MONOCYTES % (AUTO) 10 % (2-9); NEUTROPHILS # (AUTO) 5.45 x10^3/uL (1.8-6.8); NEUTROPHILS % (AUTO) 78 % (42-75); PLATELET COUNT 304 x10^3/uL (130-400); RED BLOOD COUNT 3.76 x10^6/uL (4.38-5.82); RED CELL DISTRIBUTION WIDTH 18.1 % (9.4-14.8)
[2019-03-21 17:05] LABS: CALCIUM 9.3 mg/dL (8.5-10.1); CHLORIDE 99 mmol/L (98-107)
[2019-03-21 17:11] LABS: ALANINE AMINOTRANSFERASE 17 U/L (12-78); ALBUMIN 2.5 g/dL (3.4-5.0); ALKALINE PHOSPHATASE 84 U/L (45-117); ANION GAP 5 mmol/L (5-15); BILIRUBIN,TOTAL 0.3 mg/dL (0.2-1.0); TOTAL PROTEIN 7.6 g/dL (6.4-8.2)
--- NOTE | 2019-03-21 17:21 | NUR ---
paged dr connolly for dr comer
--- NOTE | 2019-03-21 17:58 | NUR ---
dr connolly returned call to dr comer
--- NOTE | 2019-03-21 18:02 | NUR ---
PT REPORT TO BREAK RN: KALE. PT CARE TRANSFERRED.
--- NOTE | 2019-03-21 18:38 | NUR ---
PT TO BE DC'D; AWAITING DC INSTRUCTIONS
[2019-03-21 18:41] VITALS: BP 126/91
== END 2019-03-21 19:17 | disposition home or self-care (01) ==
LOC: ED 16:55
DX: R53.1 Weakness (principal); M79.10 Myalgia, unspecified site; I10 Essential (primary) hypertension; I25.2 Old myocardial infarction; I48.91 Unspecified atrial fibrillation
CPT/HCPCS: 36415; 80053; 85025; 93005; 99284

== ENCOUNTER → 2019-07-05 | Outpatient (CLI) | payer MEDICARE ==
[~2019-07-05] MED LIST changes: +AMIO100T4 PO; +HYDR-36 PO; +METO25TA35 PO; +MULTIVITAMIN; +OMEP20TA62 PO; +OMNIPAQUE 350 MG/ML, 100ML BOTTLE ONE; +VITAMIN E
== END | disposition home or self-care (01) ==
LOC: CFH 11:46
PROVIDERS: ATTEND Specialist
DX: C34.11 Malignant neoplasm of upper lobe, right bronchus or lung (principal); G95.89 Other specified diseases of spinal cord; I71.4 Abdominal aortic aneurysm, without rupture; I72.8 Aneurysm of other specified arteries; N28.1 Cyst of kidney, acquired; J47.9 Bronchiectasis, uncomplicated; Z87.891 Personal history of nicotine dependence
CPT/HCPCS: 71260; 74177; 76604; Q9967

== ENCOUNTER → 2019-07-22 | Outpatient (CLI) | payer MEDICARE ==
[~2019-07-22] MED LIST changes: -OMNIPAQUE 350 MG/ML, 100ML BOTTLE ONE
== END | disposition home or self-care (01) ==
LOC: ROC 07:09 → EDSTATUS 08-17 18:00
PROVIDERS: ATTEND Radiology Radiation Oncology
DX: C79.51 Secondary malignant neoplasm of bone (principal); Z79.899 Other long term (current) drug therapy
CPT/HCPCS: 99213; G0463

== ENCOUNTER → 2019-07-29 | Outpatient (CLI) | payer MEDICARE ==
[~2019-07-29] MED LIST changes: +OMNIPAQUE 350 MG/ML, 100ML BOTTLE ONE
== END | disposition home or self-care (01) ==
LOC: CFH 08:29
PROVIDERS: ATTEND Specialist
DX: C34.11 Malignant neoplasm of upper lobe, right bronchus or lung (principal); R91.1 Solitary pulmonary nodule; J90 Pleural effusion, not elsewhere classified; J98.11 Atelectasis; J47.9 Bronchiectasis, uncomplicated
CPT/HCPCS: 71260; 74160; Q9967

== ENCOUNTER 2019-09-08 09:10 | Outpatient (CLI) | payer MEDICARE ==
[~2019-09-08 09:10] MED LIST changes: -OMNIPAQUE 350 MG/ML, 100ML BOTTLE ONE
== END 2019-09-08 23:59 | disposition home or self-care (01) ==
LOC: CFH 09:10
PROVIDERS: ATTEND Specialist
DX: C34.11 Malignant neoplasm of upper lobe, right bronchus or lung (principal); J98.4 Other disorders of lung
CPT/HCPCS: 71046

== ENCOUNTER → 2019-09-20 | Outpatient (CLI) | payer MEDICARE ==
[~2019-09-20] MED LIST changes: +OMNIPAQUE 350 MG/ML, 100ML BOTTLE ONE
== END | disposition home or self-care (01) ==
LOC: RAD 13:27
PROVIDERS: ATTEND Specialist
DX: C78.7 Secondary malignant neoplasm of liver and intrahepatic bile duct (principal); C34.11 Malignant neoplasm of upper lobe, right bronchus or lung; R59.0 Localized enlarged lymph nodes; J47.9 Bronchiectasis, uncomplicated; J43.2 Centrilobular emphysema; K80.20 Calculus of gallbladder without cholecystitis without obstruction; N28.1 Cyst of kidney, acquired; I71.4 Abdominal aortic aneurysm, without rupture; G95.89 Other specified diseases of spinal cord; I25.2 Old myocardial infarction
CPT/HCPCS: 71260; 74160; 93306; Q9967

== ENCOUNTER 2019-09-24 09:42 | Outpatient (CLI) | payer MEDICARE ==
[~2019-09-24 09:42] MED LIST changes: -OMNIPAQUE 350 MG/ML, 100ML BOTTLE ONE
== END 2019-09-24 23:59 | disposition home or self-care (01) ==
LOC: ROC 09:42
PROVIDERS: ATTEND Radiology Radiation Oncology
DX: C79.2 Secondary malignant neoplasm of skin (principal); C34.90 Malignant neoplasm of unspecified part of unspecified bronchus or lung
CPT/HCPCS: 99212; G0463

== ENCOUNTER → 2019-10-12 | Outpatient (CLI) | payer MEDICARE ==
[~2019-10-12] MED LIST changes: +OMNIPAQUE 350 MG/ML, 150 ML BOTTLE ONE
== END | disposition home or self-care (01) ==
LOC: CFH 13:07
PROVIDERS: ATTEND Specialist
DX: Z00.6 Encounter for examination for normal comparison and control in clinical research program (principal); Z51.89 Encounter for other specified aftercare; Z51.11 Encounter for antineoplastic chemotherapy; Z51.12 Encounter for antineoplastic immunotherapy; C34.11 Malignant neoplasm of upper lobe, right bronchus or lung; D70.1 Agranulocytosis secondary to cancer chemotherapy; C79.89 Secondary malignant neoplasm of other specified sites; G89.3 Neoplasm related pain (acute) (chronic); D64.9 Anemia, unspecified; Z79.899 Other long term (current) drug therapy; S42.002A Fracture of unspecified part of left clavicle, initial encounter for closed fracture; X58.XXXA Exposure to other specified factors, initial encounter; Y93.89 Activity, other specified; Y92.89 Other specified places as the place of occurrence of the external cause; Y99.8 Other external cause status; K80.20 Calculus of gallbladder without cholecystitis without obstruction; M85.80 Other specified disorders of bone density and structure, unspecified site
CPT/HCPCS: 70491; 71260; 74160; Q9967

== ENCOUNTER 2019-12-06 11:32 | Outpatient (CLI) | payer MEDICARE ==
[~2019-12-06 11:32] MED LIST changes: -OMNIPAQUE 350 MG/ML, 150 ML BOTTLE ONE
[2019-12-06] MEDS ORDERED: OMNIPAQUE 350 MG/ML, 100ML BOTTLE ONE (14:02)
== END 2019-12-06 23:59 | disposition home or self-care (01) ==
LOC: CFH 11:32
PROVIDERS: ATTEND Specialist
DX: C34.11 Malignant neoplasm of upper lobe, right bronchus or lung (principal); D70.1 Agranulocytosis secondary to cancer chemotherapy; J47.9 Bronchiectasis, uncomplicated; J98.11 Atelectasis; J43.9 Emphysema, unspecified; G95.89 Other specified diseases of spinal cord; J98.4 Other disorders of lung; N28.1 Cyst of kidney, acquired; I71.4 Abdominal aortic aneurysm, without rupture
CPT/HCPCS: 71260; 74160; Q9967

== ENCOUNTER 2019-12-08 10:35 | Outpatient (CLI) | payer MEDICARE | END 2019-12-08 23:59 | disposition home or self-care (01) | LOC: RAD 10:35 | PROVIDERS: ATTEND Specialist | DX: C34.11 Malignant neoplasm of upper lobe, right bronchus or lung (principal); M79.89 Other specified soft tissue disorders ==

== ENCOUNTER 2019-12-20 08:36 | Outpatient (CLI) | payer MEDICARE ==
[~2019-12-20 08:36] MED LIST changes: +HYDR-3246 PO; -HYDR-36 PO
== END 2019-12-20 23:59 | disposition home or self-care (01) ==
LOC: ROC 08:36
PROVIDERS: ATTEND Radiology Radiation Oncology
DX: C79.2 Secondary malignant neoplasm of skin (principal); C34.11 Malignant neoplasm of upper lobe, right bronchus or lung; J43.9 Emphysema, unspecified
CPT/HCPCS: 99212; 99213; G0463

== ENCOUNTER → 2020-01-05 | Outpatient (CLI) | payer MEDICARE ==
[~2020-01-05] MED LIST changes: +OMNIPAQUE 350 MG/ML, 100ML BOTTLE ONE
== END | disposition home or self-care (01) ==
LOC: CFH 07:37
PROVIDERS: ATTEND Specialist
DX: C34.11 Malignant neoplasm of upper lobe, right bronchus or lung (principal); C78.7 Secondary malignant neoplasm of liver and intrahepatic bile duct; C79.51 Secondary malignant neoplasm of bone; R59.0 Localized enlarged lymph nodes; J47.9 Bronchiectasis, uncomplicated; N28.1 Cyst of kidney, acquired; M48.56XA Collapsed vertebra, not elsewhere classified, lumbar region, initial encounter for fracture
CPT/HCPCS: 71260; 74177; 82565; Q9967